=== PATIENT | male | born 1955 | race Caucasian/White ===

== ENCOUNTER → 2020-12-14 08:33 | Outpatient (CLI) | payer MEDICARE, OTHER, SELFPAY ==
--- NOTE | 2020-12-14 08:46 | XR_ITS ---
PROCEDURE: XR SHOULDER RT MIN 2V CLINICAL INDICATION: right shoulder pain COMPARISON: No exams were available for comparison FINDINGS: There are mild osteoarthritic changes of the glenohumeral joint. There is a slightly low lying a chromium. Small sclerotic focus is present in the proximal shaft of the humerus and may be due to a bone island. Other findings:None. IMPRESSION: Mild osteoarthritic changes the glenohumeral joint with mild subacromial stenosis Dictated by: Gray Quinonez MD 12/14/2020 09:44 Gray Quinonez MD in [place] 12/14/2020 09:44
== END ==
PROVIDERS: PCP Family Medicine; Visit Provider Orthopaedic Surgery
DX: M25.511 Pain in right shoulder (principal)
CPT/HCPCS: 73030